=== PATIENT | female | born 1990 | race African-American/Black ===

== ENCOUNTER 2024-04-20 00:31 | Emergency (ER) | payer OTHER ==
[2024-04-20] MEDS: predniSONE 20 MG Tab PO STA (00:48)
== END 2024-04-20 01:11 | disposition home or self-care (01) ==
LOC: CC.ED 00:31
DX: J06.9 Acute upper respiratory infection, unspecified (principal); B97.89 Other viral agents as the cause of diseases classified elsewhere; Z79.52 Long term (current) use of systemic steroids; Z79.899 Other long term (current) drug therapy
CPT/HCPCS: 87428-QW; 99283; 99284; J7512

== ENCOUNTER 2024-05-06 19:45 | Emergency (ER) | payer SELFPAY ==
[2024-05-06 20:05] LABS: BASOPHILS ABSOLUTE AUTO 0.02 10^3/uL (0.00-0.50); BASOPHILS PERCENT AUTO 0.4 % (0-1); EOSINOPHILS ABSOLUTE AUTO 0.13 10^3/uL (0.00-1.50); EOSINOPHILS PERCENT AUTO 2.5 % (0-6); HEMATOCRIT 35.6 % (37.0-47.0); HEMOGLOBIN 11.6 g/dL (12.0-16.0); IMMATURE GRAN ABSOLUTE AUTO 0.01 10^3/uL (0.00-0.49); IMMATURE GRAN PERCENT AUTO 0.2 % (0.0-4.9); LYMPHOCYTES ABSOLUTE AUTO 1.63 10^3/uL (0.60-5.00); LYMPHOCYTES PERCENT AUTO 31.7 % (24-44); MEAN CORPUSCULAR HEMOGLOBIN 28.5 pg (27.0-32.0); MEAN CORPUSCULAR HGB CONC 32.6 g/dL (32.0-36.0); MEAN CORPUSCULAR VOLUME 87.5 fL (83.0-97.0); MONOCYTES ABSOLUTE AUTO 0.57 10^3/uL (0.00-1.50); MONOCYTES PERCENT AUTO 11.1 % (0-10); NEUTROPHILS ABSOLUTE AUTO 2.79 x10^3/uL (1.80-8.00); NEUTROPHILS PERCENT AUTO 54.1 % (41-71); PLATELET COUNT,PLT 341 10^3/uL (150-400); RED BLOOD CELL COUNT 4.07 x10^6/uL (4.00-5.50); WHITE BLOOD CELL COUNT,WBC 5.2 10^3/uL (4.0-11.0)
[2024-05-06 20:19] LABS: BILIRUBIN TOTAL 0.6 mg/dL (0.0-1.0); C-REACTIVE PROTEIN 4.4 mg/dL (<=0.50); CREATININE 0.7 mg/dL (0.6-1.0); EST CRCL DRUG DOSING (CG) 98.71 mL/min; POTASSIUM,K 3.4 mEq/L (3.5-5.0); PROTEIN TOTAL,TP 6.9 g/dL (6.4-8.2)
[2024-05-06] MEDS: Ondansetron 4 MG/2 ML SDV IVPUSH STA (20:19)
[2024-05-06] MEDS: Sodium Chloride 0.9% 1,000 ML IV ONE (20:19)
[2024-05-06] MEDS: Take Home: Ondansetron 4 MG Tab.DIS, 2 Tab Pack PO ONE (21:25)
== END 2024-05-06 21:45 | disposition home or self-care (01) ==
LOC: CC.ED 19:45
DX: K52.9 Noninfective gastroenteritis and colitis, unspecified (principal); Z79.899 Other long term (current) drug therapy
CPT/HCPCS: 36415; 80053; 85025; 86140; 87428-QW; 96361; 96374; 99283; 99284-25; A9270-GY; J2405; J7030